=== PATIENT | male | born 1965 | race Caucasian/White ===

== ENCOUNTER 2018-02-12 21:31 | Emergency (ER) | payer OTHER ==
[2018-02-12] MEDS ORDERED: Sodium Chloride 0.9% 1,000 ML ONE (21:57)
[2018-02-12 22:07] LABS: #Basophils 0.1 thou/uL (0.0-0.2); #Eosinphils 0.1 thou/uL (0.0-0.7); #Lymphocytes 2.3 thou/uL (1.20-3.40); #Monocytes 0.8 thou/uL (0.11-0.59); #Neutrophils 8.7 thou/uL (1.40-6.50); %Basophils 0.6 % (0.0-1.0); %Eosinophils 0.7 % (0.0-10.0); %Lymphocytes 19.5 % (21.0-51.0); %Monocytes 6.9 % (0.0-10.0); %Neutrophils 72.3 % (42.0-75.0); Hemoglobin 15.1 g/dL (14.0-18.0); Mean Corpuscular HGB CONC 33.3 g/dL (32.0-36.0); Mean Corpuscular Hemoglobin 30.4 pg (27.0-31.0); Mean Platelet Volume 7.9 fL (7.4-10.4); Platelet Count 217 thou/uL (130-400); RBC Distribution Width 11.3 % (11.5-14.5); Red Blood Cell (RBC) Count 4.99 mill/uL (4.70-6.10)
[2018-02-12 22:21] LABS: ALT (SGPT) 41 U/L (8-55); AST (SGOT) 32 U/L (5-34); Albumin 4.5 g/dL (3.5-5.0); Alcohol 194 mg/dL (Less than 10); Alkaline Phosphatase 66 U/L (40-150); Anion Gap 22 mmol/L (10-20); BUN (Urea Nitrogen) 15 mg/dL (8.4-25.7); Bilirubin, Total 0.3 mg/dL (0.2-1.2); CK (CPK) 177 U/L (30-200); Calc. Creatinine Clearance 0 mL/min (70-130); Calcium 9.8 mg/dL (7.8-10.44); Carbon Dioxide 19 mmol/L (22-29); Chloride 100 mmol/L (98-107); Estimated GFR-MDRD Greater than 90; Globulin 2.5 g/dL (2.4-3.5); Glucose 179 mg/dL (70-105); Potassium 3.8 mmol/L (3.5-5.1); Sodium 137 mmol/L (136-145)
[2018-02-12 22:23] LABS: CKMB 3.5 ng/mL (0-6.6); Troponin I Less than 0.010 ng/mL (< 0.028)
--- NOTE | 2018-02-12 22:25 | CT ---
CT HEAD WITHOUT CONTRAST: 02/12/18 Multiple axial tomograms obtained through the head without IV enhancement INDICATIONS: Trauma. Fall with injury to head. Ventricles have normal size and position. No evidence of intracranial mass or hemorrhage. Osseous str uctures unremarkable. IMPRESSION: No acute abnormality. POS: [facility]
--- NOTE | 2018-02-12 22:27 | CT ---
CT CERVICAL SPINE: 02/12/18 Multiple axial tomograms obtained through the cervical spine with multiplanar reconstruction. INDICATIONS: Fall with injury to neck. Cervical vertebrae maintain normal height and alignment. There are mild degenerative changes present with osteophytes from the cervical vertebrae. Mild loss of disc space at C4-5, C5-6, and C6-7 levels. No evidence of fracture. IMPRESSION: No acute fracture. There are degenerative changes noted. POS: [facility]
== END 2018-02-12 22:45 ==
LOC: NAV ERS 21:31
DX: S00.432A Contusion of left ear, initial encounter (principal); F10.129 Alcohol abuse with intoxication, unspecified; E11.9 Type 2 diabetes mellitus without complications; I10 Essential (primary) hypertension; F17.210 Nicotine dependence, cigarettes, uncomplicated; Z79.899 Other long term (current) drug therapy; Y04.0XXA Assault by unarmed brawl or fight, initial encounter
CPT/HCPCS: 70450; 72125; 80053; 80307; 82550; 82553; 84484; 85025; 93005; 96360; J7050

== ENCOUNTER 2020-08-05 09:45 | Emergency (ER) | payer BC, SELFPAY ==
[2020-08-05] MEDS ORDERED: Bacitracin 1 PK ONE (10:03)
[2020-08-05] MEDS ORDERED: TETANUS, DIPHTHERIA TOX,ADULT (TDVAX) 0.5 ML VIAL IM ONE (10:03)
== END 2020-08-05 10:22 | disposition home or self-care (01) ==
LOC: NAV ERS 09:45
DX: S01.01XA Laceration without foreign body of scalp, initial encounter (principal); S13.9XXA Sprain of joints and ligaments of unspecified parts of neck, initial encounter; E11.9 Type 2 diabetes mellitus without complications; I10 Essential (primary) hypertension; F17.210 Nicotine dependence, cigarettes, uncomplicated; Z79.899 Other long term (current) drug therapy; V89.2XXA Person injured in unspecified motor-vehicle accident, traffic, initial encounter
CPT/HCPCS: 12002; 90471; 90714